=== PATIENT | male | born 1990 | race Caucasian/White ===

== ENCOUNTER 2024-06-01 03:09 | Emergency (ER) | payer OTHER ==
[~2024-06-01] VITALS: Ht 172.7 cm; Wt 99.8 kg
[2024-06-01 03:42] VITALS: BP 124/76; TEMP 98; O2SAT 98
[2024-06-01] MEDS ORDERED: LIDOCAINE 1% INJ 50 ML MDV IJ ONE (03:49)
[2024-06-01] MEDS: LIDOCAINE 1% INJ 50 ML MDV IJ ONE (03:50)
== END 2024-06-01 04:39 | disposition home or self-care (01) ==
LOC: ER 03:15
DX: S61.411A Laceration without foreign body of right hand, initial encounter (principal); W25.XXXA Contact with sharp glass, initial encounter; Y93.89 Activity, other specified; Y92.89 Other specified places as the place of occurrence of the external cause; Y99.8 Other external cause status
CPT/HCPCS: 12004; 99283; J3490